=== PATIENT | male | born 1985 | race African-American/Black ===

== ENCOUNTER 2023-08-16 12:16 | Inpatient (IN) | payer OTHER ==
[~2023-08-16] VITALS: Ht 172.7 cm; Wt 79.4 kg
[2023-08-16] MEDS: 0.9%NACL 1000ML 1,000 ML IV ONE (12:56)
[2023-08-16 13:19] LABS: BASOPHILS # (AUTO) 0.04 K/uL (0.00-0.20); BASOPHILS % (AUTO) 0.3 % (0.0-5.0); EOSINOPHILS # (AUTO) 0.01 K/uL (0.00-0.70); EOSINOPHILS % (AUTO) 0.1 % (0.0-8.0); HEMATOCRIT 45.6 % (42-54); IMMATURE GRANULOCYTE ABSOLUTE 0.05 K/uL (0-1); LYMPHOCYTES # (AUTO) 1.8 K/uL (1.0-4.8); LYMPHOCYTES % (AUTO) 14.2 % (21.0-51.0); MEAN CORPUSCULAR HEMOGLOBIN 31.9 pg (27.0-33.0); MEAN CORPUSCULAR HGB CONC 35.1 g/dL (32.0-36.0); MONOCYTES # (AUTO) 1.1 K/uL (0.1-1.0); MONOCYTES % (AUTO) 8.4 % (3.0-13.0); NEUTROPHILS # (AUTO) 9.9 K/uL (1.8-7.7); NEUTROPHILS % (AUTO) 76.6 % (40.0-77.0); PLATELET COUNT (AUTO) 217 K/uL (130-400); RED BLOOD CELL COUNT(AUTO) 5.01 MIL/uL (4.50-6.20); RED CELL DISTRIBUTION WIDTH 13.4 % (11.0-15.5); WHITE BLOOD COUNT (AUTO) 12.9 K/uL (4.8-10.8)
[2023-08-16 13:32] LABS: CREATININE 1.9 mg/dL (0.5-1.3); POTASSIUM 3.6 mmol/L (3.5-5.1)
[2023-08-16 14:25] LABS: APPEARANCE,URINE CLOUDY (CLEAR); BILIRUBIN,URINE NEGATIVE (NEGATIVE); COLOR,URINE YELLOW (YELLOW); GLUCOSE, URINE (UA) NEGATIVE (NEGATIVE); KETONES,URINE 10 mg/dL (NEGATIVE); LEUKOCYTE ESTERASE ,URINE NEGATIVE Leu/uL (NEGATIVE); NITRATE,URINE NEGATIVE (NEGATIVE); OCCULT BLOOD,URINE SMALL (NEGATIVE); PROTEIN,URINE 200 mg/dL (NEGATIVE)
[2023-08-16 14:29] LABS: ADD UA MICROSCOPIC YES
[2023-08-16 14:32] LABS: MUCUS,URINE MANY LPF (None Seen); OTHER CASTS, URINE 5 /LPF (None Seen); SQUAMOUS EPITHELIAL CELL,UR RARE /HPF (0-2)
[2023-08-16] MEDS ORDERED: ACETAMINOPHEN 500 MG TABLET PO PRN (15:00)
[2023-08-16] MEDS ORDERED: ALBUTEROL 0.042% 1.25MG/3ML IH PRN (15:00)
[2023-08-16 15:09] LABS: AMPHET/METH SCREEN,URINE NEGATIVE (NEGATIVE); BARBITURATE SCREEN, URINE NEGATIVE (NEGATIVE); BENZODIAZEPINES SCREEN,URINE NEGATIVE (NEGATIVE); CANNABINOID SCREEN,URINE POSITIVE (NEGATIVE); COCAINE SCREEN,URINE NEGATIVE (NEGATIVE); OPIATE SCREEN,URINE NEGATIVE (NEGATIVE); PHENCYCLIDINE SCREEN,URINE NEGATIVE (NEGATIVE); SODIUM,URINE RANDOM 37 mmol/l (40-220)
[2023-08-16 15:13] LABS: THYROID STIMULATING HORMONE 0.85 uIU/mL (0.36-3.74)
[2023-08-16 15:20] VITALS: PULSE 83; RESP 20; O2SAT 98
[2023-08-16] MEDS: 0.9%NACL 1000ML 1,000 ML IV SCH (15:41)
[2023-08-16 15:43] LABS: HEMOGLOBIN A1C 5.5 % (4.0-6.0)
[2023-08-16 17:00] VITALS: BP 128/79; PULSE 76; RESP 18
[2023-08-16 20:00] VITALS: BP 132/66; PULSE 62; RESP 20; O2SAT 100
[2023-08-16 20:52] VITALS: O2SAT 96
[2023-08-16] MEDS: NICOTINE 14 MG/ 24 HR PATCH TD SCH (21:00)
[2023-08-17] VITALS (9 sets, daily range): BP systolic 122–143; BP diastolic 69–86; PULSE 59–81; RESP 16–20; O2SAT 98–100
[2023-08-17 05:13] LABS: HEMATOCRIT 38.1 % (42-54); MEAN CORPUSCULAR HEMOGLOBIN 32.2 pg (27.0-33.0); MEAN CORPUSCULAR HGB CONC 34.4 g/dL (32.0-36.0); MEAN CORPUSCULAR VOLUME 93.6 fL (79-99); RED BLOOD CELL COUNT(AUTO) 4.07 MIL/uL (4.50-6.20); RED CELL DISTRIBUTION WIDTH 13.4 % (11.0-15.5); WHITE BLOOD COUNT (AUTO) 10.5 K/uL (4.8-10.8)
[2023-08-17 05:49] LABS: POTASSIUM 3.5 mmol/L (3.5-5.1)
[2023-08-17] MEDS: FAMOTIDINE 20MG VIAL IV SCH (08:33)
[2023-08-18] VITALS: BP 153/80; PULSE 66; RESP 20
[2023-08-18 04:00] VITALS: BP 151/88; PULSE 62; RESP 20
[2023-08-18 05:38] LABS: BASOPHILS # (AUTO) 0.04 K/uL (0.00-0.20); BASOPHILS % (AUTO) 0.6 % (0.0-5.0); EOSINOPHILS # (AUTO) 0.08 K/uL (0.00-0.70); EOSINOPHILS % (AUTO) 1.1 % (0.0-8.0); HEMATOCRIT 33.8 % (42-54); IMMATURE GRANULOCYTE ABSOLUTE 0.02 K/uL (0-1); LYMPHOCYTES # (AUTO) 2.9 K/uL (1.0-4.8); LYMPHOCYTES % (AUTO) 39.9 % (21.0-51.0); MEAN CORPUSCULAR HEMOGLOBIN 32.3 pg (27.0-33.0); MEAN CORPUSCULAR VOLUME 94.9 fL (79-99); MONOCYTES # (AUTO) 0.8 K/uL (0.1-1.0); MONOCYTES % (AUTO) 11.6 % (3.0-13.0); NEUTROPHILS # (AUTO) 3.4 K/uL (1.8-7.7); NEUTROPHILS % (AUTO) 46.5 % (40.0-77.0); PLATELET COUNT (AUTO) 173 K/uL (130-400); RED BLOOD CELL COUNT(AUTO) 3.56 MIL/uL (4.50-6.20); RED CELL DISTRIBUTION WIDTH 13.2 % (11.0-15.5); WHITE BLOOD COUNT (AUTO) 7.2 K/uL (4.8-10.8)
[2023-08-18 06:30] VITALS: PULSE 64; RESP 18; O2SAT 100
[2023-08-18 07:33] LABS: MAGNESIUM 1.8 mg/dL (1.80-2.40); PHOSPHORUS 3.3 mg/dL (2.5-4.9); POTASSIUM 3.9 mmol/L (3.5-5.1)
[2023-08-18 08:38] VITALS: BP 128/71; PULSE 70; RESP 16
[2023-08-18 10:45] VITALS: O2SAT 99
[2023-08-18 11:13] VITALS: BP 130/72; PULSE 58; RESP 16
[2023-08-18] MEDS ORDERED: TOPI25TA42 PO (11:18)
== END 2023-08-18 13:35 | disposition home or self-care (01) | DRG 683 ==
LOC: EDH 12:16 → EDHIP 12:17 → 3AH 17:00
PROVIDERS: ADMIT Internal Medicine; ATTEND Internal Medicine
DX: N17.9 Acute kidney failure, unspecified (principal); M62.82 Rhabdomyolysis; N39.0 Urinary tract infection, site not specified; E86.0 Dehydration; G43.909 Migraine, unspecified, not intractable, without status migrainosus; F17.210 Nicotine dependence, cigarettes, uncomplicated; T67.5XXA Heat exhaustion, unspecified, initial encounter; X30.XXXA Exposure to excessive natural heat, initial encounter; Z59.00 Homelessness unspecified
CPT/HCPCS: 36415; 71045; 76770; 80048; 80305; 81001; 82550; 82570; 83036; 83735; 84100; 84145; 84300; 84443; 85025; 85027; 86140; 87088; G0378; J3490